=== PATIENT | male | born 1960 | race Two or more races ===

== ENCOUNTER 2017-02-10 19:54 | Inpatient (IN) | payer OTHER ==
[~2017-02-10] VITALS: Ht 160 cm; Wt 72.6 kg
[2017-02-10] MEDS ORDERED: KEPPRA500 M4 ORAL (19:55)
--- NOTE | 2017-02-10 20:57 | Emergency Room Report ---
History of Present Illness General Chief Complaint: Syncope Source: Patient, Family Member Present Illness HPI 56 YOM BIBEMS for suspected syncopal episode. Patient was at friend's house, head nodded and he was not responsive for 20-30sec. No trauma, falls. Patient a little confused, c/o headache after. Denies tongue biting, incontinence. Took Keppra 1500mg last 2 nights ago. Has enough at home. Denies ETOH, drug use. Denies chest pain, SOB, abd pain, palpitations, other complaints. Allergies: Coded Allergies: No Known Allergies (Unverified , 02/10/17) Patient History Past Medical History: seizures Past Surgical History: none Pertinent Family History: none Social History: Denies: alcohol use, drug use, smoking Immunizations: UTD Reviewed Nursing Documentation: PMH: Agreed, PSxH: Agreed Nursing Documentation-PMH Hx Seizures: Yes Review of Systems All Other Systems: negative except mentioned in HPI Physical Exam Vital Signs Date Time Temp Pulse Resp B/P Pulse Ox O2 Delivery O2 Flow Rate FiO2 02/10/17 19:50 98.1 88 18 146/92 98 Room Air Sp02 EP Interpretation: reviewed, normal General Appearance: normal inspection, well appearing, no apparent distress, alert, GCS 15, non-toxic Head: normocephalic, atraumatic Eyes: bilateral eye EOMI, bilateral eye PERRL ENT: normal ENT inspection, hearing grossly normal, normal voice Neck: normal inspection, full range of motion, supple, no bony tend Respiratory: normal inspection, lungs clear, normal breath sounds, no respiratory distress, no retraction, no wheezing Cardiovascular #1: regular rate, rhythm, no edema Gastrointestinal: normal inspection, normal bowel sounds, non tender, soft, no guarding, no hernia Genitourinary: no CVA tenderness Musculoskeletal: normal inspection, back normal, normal range of motion, Charlene' s Sign negative Neurologic: normal inspection, alert, oriented x3, responsive, salesforce administrator III-XII nml as tested, motor strength/tone normal, speech normal Psychiatric: normal inspection, judgement/insight normal, mood/affect normal Skin: normal inspection, normal color, no rash Lymphatic: normal inspection Medical Decision Making Diagnostic Impression: Primary Impression: Seizure ER Course 56 YO M with likely seizure vs syncope less likely given brief post-ictal period , headache, non-compliance with Keppra. Additinal grand mal seizure in ED Given his regular QHS dose of Keppra here in ED said he has TWO seizures today prior to ED arrival and also takes Carbamazepine for seizures. Labs: Leuks 15k. Tylenol, ASA, ETOH level 0 CT head negative for ICH, mass, mass effect on ED review Carb level pending No additional seizures after 2mg IV ativan Endorsed to Dr Mcintosh at 954pm for tele admission as [facility] preferred Hospitalist. Rhythm Strip Diag. Results EP Interpretation: yes Rate: 93 Rhythm: NSR, no PVC's, no ectopy Last Vital Signs Date Time Temp Pulse Resp B/P Pulse Ox O2 Delivery O2 Flow Rate FiO2 02/10/17 19:50 98.1 88 18 146/92 98 Room Air Status: improved Disposition: ADMITTED INPATIENT Condition: Serious Patient Instructions: Seizure, Adult, [id number] Additional Instructions: - Start taking your Keppra as prescribed tomorrow night - Tuesday. - You were given your nightly dose today - Follow up with your doctor regarding seizures in 2-3 days BECCA BLANCO M.D. Feb 10, 2017 20:57
[2017-02-10] MEDS ORDERED: LORazepam Inj 2mg/ml 1ml ONE (20:59)
[2017-02-10] MEDS ORDERED: LORazepam Inj 2mg/ml 1ml IV ONE (21:00)
[2017-02-10 21:05] VITALS: BP 149/89
[2017-02-10 21:34] LABS: ACETAMINOPHEN < 10 ug/mL (10-30); ALANINE AMINOTRANSFERASE 12 U/L (3-41); ALBUMIN/GLOBULIN RATIO 1.5 (1.0-2.7); ALCOHOL < 10 mg/dL; ANION GAP 25 (5-15); ASPARTATE AMINO TRANSFERASE 18 U/L (5-40); CALCIUM 10.3 mg/dL (8.6-10.2); CARBON DIOXIDE 21 mEQ/L (20-30); CHLORIDE 98 mEQ/L (98-107); GLOMERULAR FILTRATION RATE > 60 mL/min (>60); HEMOLYSIS 3; POTASSIUM 4.1 mEQ/L (3.4-4.9); SODIUM 144 mEQ/L (135-145); TOTAL PROTEIN 8.1 g/dL (6.6-8.7)
[2017-02-10 21:40] LABS: BASOPHILS % (AUTO) 0.8 % (0.0-2.0); EOSINOPHILS % (AUTO) 0.1 % (0.0-3.0); LYMPHOCYTES % (AUTO) 19.4 % (20.0-45.0); MEAN CORPUSCULAR HEMOGLOBIN 31.4 PG (27.0-31.0); MEAN CORPUSCULAR HGB CONC 32.4 G/DL (32.0-36.0); MEAN CORPUSCULAR VOLUME 97 FL (80-99); MEAN PLATELET VOLUME 5.8 FL (6.5-10.1); MONOCYTES % (AUTO) 8.8 % (1.0-10.0); PLATELET COUNT 237 K/UL (150-450); RED BLOOD COUNT 4.89 M/UL (4.70-6.10); RED CELL DISTRIBUTION WIDTH 11.9 % (11.6-14.8)
[2017-02-10 23:09] VITALS: BP 138/84
[2017-02-11] MEDS ORDERED: Zolpidem 5mg tab ORAL PRN
[2017-02-11] MEDS ORDERED: Miralax 17gm pkt ORAL PRN
[2017-02-11] MEDS ORDERED: Morphine Sulfate 2mg/ml Inj IVP PRN
[2017-02-11] MEDS ORDERED: LORazepam Inj 2mg/ml 1ml IV PRN
[2017-02-11] MEDS ORDERED: Mylanta II UD 30ml ORAL PRN
[2017-02-11 00:27] VITALS: BP 108/61
[2017-02-11 02:25] VITALS: BP 110/63
[2017-02-11 04:30] VITALS: BP 105/66
[2017-02-11 06:52] VITALS: BP 108/70
--- NOTE | 2017-02-11 08:59 | Diagnostic Imaging Report ---
Indication: Seizure and syncope Technique: Continuous helical CT scanning of the head was performed without intravenous contrast material. Axial and coronal 5 mm sections were generated. Radiation dose was minimized using automated exposure control Dose: Total Dose Length Product - DLP [address] Dose Index - CTDIvol(s) 70.38 mGy. Comparison: None Findings: The ventricular system is normal in size and configuration. There is no shift of midline structures. No abnormal extra-axial fluid collections are noted. There is no evidence of intracerebral bleeding. No other abnormal high or low density areas are noted within the brain. Intact calvarium. Visualized orbits and sinuses are unremarkable Impression: Normal CT scan of the head without contrast material. This agrees with the preliminary interpretation provided overnight by Dr. Gutiérrez The CT scanner at [facility] is accredited by the [employer] and the scans are performed using protocols designed to limit radiation exposure to as low as reasonably achievable to attain images of sufficient resolution adequate for diagnostic evaluation.
[2017-02-11] MEDS ORDERED: Heparin 5000 units/ml inj SUBQ SCH (09:00)
--- NOTE | 2017-02-11 11:30 | Diagnostic Imaging Report ---
Indication: Shortness of breath Technique: One view of the chest Comparison: None Findings: Lungs and pleural spaces are clear. Heart size is normal Impression: Negative This agrees with the preliminary interpretation provided by the emergency room physician
[2017-02-11 12:00] VITALS: BP 105/61
--- NOTE | 2017-02-11 12:06 | History and Physical ---
History of Present Illness General Date patient seen: Feb 11, 2017 Reason for Hospitalization: Syncope Present Illness HPI 56 year old male with hx of seizure brought in by paramedics with CC of ALOC . Patient was at friend's house when he became unresponsive for 20-30sec. No trauma, falls. Patient a little confused, c/o headache after. Denies tongue biting, incontinence. Pt is admitted for uncontrolled seizures. Allergies: Coded Allergies: No Known Allergies (Unverified , 02/10/17) Medication History Scheduled Levetiracetam (Keppra), 3 TAB ORAL BEDTIME, (Reported) Patient History Healthcare decision maker pt alert and oriented Resuscitation status Full Code Advanced Directive on File No Past Medical/Surgical History Past Medical/Surgical History: (1) Seizure Review of Systems All Other Systems: negative except mentioned in HPI Physical Exam General Appearance: WD/WN Lines, tubes and drains: peripheral HEENT: normocephalic Neck: non-tender Respiratory/Chest: chest wall non-tender, lungs clear Cardiovascular/Chest: normal peripheral pulses Abdomen: normal bowel sounds Genitourinary/Rectal: normal genital exam, normal prostate exam Skin Exam: normal pigmentation Last 24 Hour Vital Signs Date Time Temp Pulse Resp B/P Pulse Ox O2 Delivery O2 Flow Rate FiO2 02/11/17 08:15 74 02/11/17 07:26 98.4 70 11 108/70 96 Room Air 02/11/17 06:52 98.4 70 11 108/70 96 Room Air 02/11/17 04:30 74 17 105/66 100 Room Air 02/11/17 02:25 98.2 70 18 110/63 100 Room Air 02/11/17 00:27 98.1 69 21 108/61 98 Room Air 02/10/17 23:09 97.9 78 19 138/84 98 Room Air 02/10/17 21:40 98.1 02/10/17 21:05 98.1 104 18 149/89 98 Room Air 02/10/17 19:50 98.1 88 18 146/92 98 Room Air Intake and Output 02/10/17 02/11/17 19:00 07:00 Output Total 600 ml Balance -600 ml Output Urine Total 600 ml # Voids 1 Laboratory Tests Test 02/10/17 21:00 02/10/17 22:00 White Blood Count 14.0 K/UL (4.8-10.8) H Red Blood Count 4.89 M/UL (4.70-6.10) Hemoglobin 15.4 G/DL (14.2-18.0) Hematocrit 47.4 % (42.0-52.0) Mean Corpuscular Volume 97 FL (80-99) Mean Corpuscular Hemoglobin 31.4 PG (27.0-31.0) H Mean Corpuscular Hemoglobin Concent 32.4 G/DL (32.0-36.0) Red Cell Distribution Width 11.9 % (11.6-14.8) Platelet Count 237 K/UL (150-450) Mean Platelet Volume 5.8 FL (6.5-10.1) L Neutrophils (%) (Auto) 71.0 % (45.0-75.0) Lymphocytes (%) (Auto) 19.4 % (20.0-45.0) L Monocytes (%) (Auto) 8.8 % (1.0-10.0) Eosinophils (%) (Auto) 0.1 % (0.0-3.0) Basophils (%) (Auto) 0.8 % (0.0-2.0) Sodium Level 144 mEQ/L (135-145) Potassium Level 4.1 mEQ/L (3.4-4.9) Chloride Level 98 mEQ/L (98-107) Carbon Dioxide Level 21 mEQ/L (20-30) Anion Gap 25 (5-15) H Blood Urea Nitrogen 17 mg/dL (7-23) Creatinine 1.0 mg/dL (0.7-1.2) Estimat Glomerular Filtration Rate > 60 mL/min (>60) Glucose Level 121 mg/dL (74-106) H Calcium Level 10.3 mg/dL (8.6-10.2) H Total Bilirubin 0.4 mg/dL (0.0-1.2) Aspartate Amino Transf (AST/SGOT) 18 U/L (5-40) Alanine Aminotransferase (ALT/SGPT) 12 U/L (3-41) Alkaline Phosphatase 101 U/L (40-129) Total Protein 8.1 g/dL (6.6-8.7) Albumin 4.9 g/dL (3.5-5.2) Globulin 3.2 g/dL Albumin/Globulin Ratio 1.5 (1.0-2.7) Salicylates Level < 1 mg/dL (10-30) L Acetaminophen Level < 10 ug/mL (10-30) L Carbamazepine (Tegretol) Level < 2.0 ug/mL (4.0-12.0) L Serum Alcohol < 10 mg/dL Urine Opiates Screen Negative (NEGATIVE) Urine Barbiturates Screen Negative (NEGATIVE) Phencyclidine (PCP) Screen Negative (NEGATIVE) Urine Amphetamines Screen Negative (NEGATIVE) Urine Benzodiazepines Screen Negative (NEGATIVE) Urine Cocaine Screen Negative (NEGATIVE) Urine Marijuana (THC) Screen Negative (NEGATIVE) Height (Feet): 5 Height (Inches): 3.00 Weight (Pounds): 160 Medications Current Medications Medications (Trade) Dose Ordered Sig/Davidson Route PRN Reason Start Time Stop Time Status Last Admin Dose Admin Acetaminophen (Tylenol) 650 mg Q4H PRN ORAL fever 02/11/17 00:00 03/13/17 00:00 Al Hydroxide/Mg Hydroxide (Mylanta II) 30 ml Q6H PRN ORAL dyspepsia 02/11/17 00:00 03/13/17 00:00 Dextrose (Dextrose 50%) STAT PRN IV Hypoglycemia 02/11/17 00:00 03/13/17 00:00 Heparin Sodium (Porcine) (Heparin 5000 units/ml) 5,000 units EVERY 12 HOURS SUBQ 02/11/17 09:00 03/13/17 08:59 02/11/17 08:40 Levetiracetam (Keppra) 1,500 mg STAT ORAL 02/10/17 20:30 03/12/17 20:29 02/10/17 20:41 Lorazepam (Ativan 2mg/ml 1ml) 2 mg Q1H PRN IV seizures 02/11/17 00:00 02/18/17 00:00 Morphine Sulfate (Morphine Sulfate) 1 mg Q4H PRN IVP For Pain 02/11/17 00:00 02/18/17 00:00 Ondansetron HCl (Zofran) 4 mg Q6H PRN IVP Nausea & Vomiting 02/11/17 00:00 03/13/17 00:00 Polyethylene Glycol (Miralax) 17 gm HSPRN PRN ORAL Constipation 02/11/17 00:00 03/13/17 00:00 Zolpidem Tartrate (Ambien) 5 mg HSPRN PRN ORAL Insomnia 02/11/17 00:00 03/13/17 00:00 Assessment/Plan Problem List: (1) Uncontrolled seizures ICD Codes: R56.9 - Unspecified convulsions SNOMED: [id number] Assessment/Plan seizure precaution neuro evaluation ERA KELLY Feb 11, 2017 12:06
--- NOTE | 2017-02-11 12:48 | Neurology Progress Note ---
Objective Physical Exam Last Vital Signs Date Time Temp Pulse Resp B/P Pulse Ox O2 Delivery O2 Flow Rate FiO2 02/11/17 08:15 74 02/11/17 07:26 98.4 11 108/70 96 Room Air Laboratory Tests Test 02/10/17 21:00 02/10/17 22:00 White Blood Count 14.0 K/UL (4.8-10.8) H Red Blood Count 4.89 M/UL (4.70-6.10) Hemoglobin 15.4 G/DL (14.2-18.0) Hematocrit 47.4 % (42.0-52.0) Mean Corpuscular Volume 97 FL (80-99) Mean Corpuscular Hemoglobin 31.4 PG (27.0-31.0) H Mean Corpuscular Hemoglobin Concent 32.4 G/DL (32.0-36.0) Red Cell Distribution Width 11.9 % (11.6-14.8) Platelet Count 237 K/UL (150-450) Mean Platelet Volume 5.8 FL (6.5-10.1) L Neutrophils (%) (Auto) 71.0 % (45.0-75.0) Lymphocytes (%) (Auto) 19.4 % (20.0-45.0) L Monocytes (%) (Auto) 8.8 % (1.0-10.0) Eosinophils (%) (Auto) 0.1 % (0.0-3.0) Basophils (%) (Auto) 0.8 % (0.0-2.0) Sodium Level 144 mEQ/L (135-145) Potassium Level 4.1 mEQ/L (3.4-4.9) Chloride Level 98 mEQ/L (98-107) Carbon Dioxide Level 21 mEQ/L (20-30) Anion Gap 25 (5-15) H Blood Urea Nitrogen 17 mg/dL (7-23) Creatinine 1.0 mg/dL (0.7-1.2) Estimat Glomerular Filtration Rate > 60 mL/min (>60) Glucose Level 121 mg/dL (74-106) H Calcium Level 10.3 mg/dL (8.6-10.2) H Total Bilirubin 0.4 mg/dL (0.0-1.2) Aspartate Amino Transf (AST/SGOT) 18 U/L (5-40) Alanine Aminotransferase (ALT/SGPT) 12 U/L (3-41) Alkaline Phosphatase 101 U/L (40-129) Total Protein 8.1 g/dL (6.6-8.7) Albumin 4.9 g/dL (3.5-5.2) Globulin 3.2 g/dL Albumin/Globulin Ratio 1.5 (1.0-2.7) Salicylates Level < 1 mg/dL (10-30) L Acetaminophen Level < 10 ug/mL (10-30) L Carbamazepine (Tegretol) Level < 2.0 ug/mL (4.0-12.0) L Serum Alcohol < 10 mg/dL Urine Opiates Screen Negative (NEGATIVE) Urine Barbiturates Screen Negative (NEGATIVE) Phencyclidine (PCP) Screen Negative (NEGATIVE) Urine Amphetamines Screen Negative (NEGATIVE) Urine Benzodiazepines Screen Negative (NEGATIVE) Urine Cocaine Screen Negative (NEGATIVE) Urine Marijuana (THC) Screen Negative (NEGATIVE) Impression/Recommendations Problems: (1) chronic partial complex seizure disorder, exacerbation 2/2 noncompliance Status: stable Recommendations #[id number] NABIL PEARCE Feb 11, 2017 12:48
[2017-02-11] MEDS ORDERED: carBAMazepine XR 200mg tab ORAL SCH (14:30)
--- NOTE | 2017-02-11 23:58 | Consultation ---
DATE OF CONSULTATION: 02/11/2017 NEUROLOGICAL CONSULTATION CONSULTING PHYSICIAN: Shay Dong M.D. REQUESTING PHYSICIAN: Stacey Mcintosh M.D. HISTORY OF PRESENT ILLNESS: This is a 56 years old gentleman seen in neurological consultation to evaluate the exacerbation of seizures. The patient reportedly was at a friend's house, where he had a very brief 20 to 30 seconds episode of unresponsiveness with head nodded down, following which he was somewhat confused and developed some headaches. He was brought to the emergency room. Blood pressure was 146/92 and temperature 98.1. He is fully alert and oriented. While in the emergency department, he developed generalized clonic-tonic seizure, which his came and reported that actually prior to coming to emergency room he had at least two generalized seizures. Following arrival, vital signs remained stable. His laboratory studies revealed CBC study with WBC of 14.0. Chemistry panel - blood sugar 121, calcium 10.3, and anion gap of 25. Toxicology panel, carbamazepine level was less than 2.0. He had a CT scan of the brain done, this was normal with no evidence of stroke. He had a chest x-ray that was negative. The patient now explains that he has a chronic seizure disorder since the early 30s. Seizures initially were generalized with a fall and tongue biting, but several years now they become nonconvulsive with sudden onset of loss of consciousness without fall, blank stare, lasting few seconds. This occurs only once in couple of months. The patient is maintained on Keppra 1500 mg at nighttime. He is on Tegretol although he is unable to recall appropriately his dose. PAST MEDICAL HISTORY: Limited only to seizure disorder. No other major medical problems. CURRENT TREATMENT: Limited to Keppra and Tegretol. SOCIAL HISTORY: . No alcohol. No drug abuse. Nonsmoker. The patient is working in a body shop with painting the bodies. REVIEW OF SYSTEMS: At this time, the patient feels well. He has no complaints. No chest pain. No palpitations. No respiratory problems. Denies abdominal pain or discomfort. No urine or bowel incontinence. PHYSICAL EXAMINATION: VITAL SIGNS: Stable. Blood pressure 108/70, respiratory rate 11, and temperature 98.4 degrees. HEENT: Head is normocephalic. No evidence of injuries. Eyes, ears, and throat are clear. NECK: Supple. No meningeal signs. MUSCULOSKELETAL: Unremarkable. There is no deformities. Peripheral pulses 1+ symmetric. MENTAL STATUS: Alert and oriented x3. No evidence of aphasia or apraxia. Cognition is normal. CRANIAL NERVE II: Pupils both responding to light and accommodation. Extraocular movements are intact. No nystagmus. CRANIAL NERVE V: Normal corneal responses. CRANIAL NERVE VII: No facial asymmetry. CRANIAL NERVE VIII: Grossly normal hearing. CRANIAL NERVE IX THROUGH XII: Tongue is in midline. Symmetric palate elevation. MOTOR EXAMINATION: Normal muscle tone and strength is 5/5 in all extremities. No involuntary movement. Deep reflexes 1+ symmetric with downgoing toes on both sides. SENSORY EXAMINATION: Normal to pinprick and light touch. Gait is stable. IMPRESSION: Chronic partial complex seizure disorder with secondary generalization, now presenting with exacerbation due to noncompliance. DISCUSSION: The patient admits not taking medication over the last two or three days. He arrived with a Tegretol level subtherapeutic. The patient will restart on his usual dose of Keppra 1500 mg daily. The patient informed that he was not taking his medication over the last couple of days, this respond to low level of Tegretol on admission. We will restart treatment with Keppra 1000 mg b.i.d. and Tegretol 200 mg b.i.d. Observe for paroxysmal events. The patient was informed that his seizures exacerbated by not taking medication, by being hungry or having insufficient sleep. All trigger factors were discussed. Thank you for allowing me to see this interesting patient in neurological consultation. Shay Dong M.D. DR: ZENOBIA JOB#: [id number] CC:
--- NOTE | 2017-02-12 18:51 | Cardiology Report ---
APPROVED REPORT EKG Measurement Heart [id number] Sinus tachycardia Otherwise normal ECG
--- NOTE | 2017-02-14 12:48 | Discharge Summary ---
Discharge Summary Hospital Course Date of Admission Feb 10, 2017 at 21:33 Date of Discharge Feb 11, 2017 at 15:07 Admitting Diagnosis seizures DESTINEY Maloney is a 56 year old male who was admitted on Feb 10, 2017 at 21: 33 for Seizures Hospital Course dc summary #[id number] Discharge Medications New Medications: Carbamazepine (Tegretol*) 200 Mg Tablet 200 MG PO Q12HR, #60 TAB 0 Refills Continued Medications: Levetiracetam (Levetiracetam) 1,000 Mg Tablet 1000 MG ORAL TWICE A DAY, #60 TAB 0 Refills Discharge Condition Upon Discharge: stable Discharge Disposition Patient was discharged to Home (01) Discharge Diagnoses: Discharge Instructions Discharge Instructions Special Instructions I have been assigned to complete a D/C Summary on this account. I was not involved in the patient management Deana Meadows NP (Vanchtein) Feb 14, 2017 12:48
--- NOTE | 2017-02-15 02:39 | Discharge Summary 2 SIG ---
DATE OF ADMISSION: 02/10/2017 DATE OF DISCHARGE: 02/11/2017 REASON FOR ADMISSION: 56-year-old male, presented to emergency room after seizure x2 per his . The patient was in the house and was not responsive for 20 to 30 seconds. No falls. No injury. No trauma. The patient was slightly confused upon presentation and reported headache. He denied tongue biting. Denied incontinence. The patient usually at home on Keppra and Tegretol. He did not take Tegretol for few days and took Keppra 00260 mg two nights ago. He denied alcohol and illicit street drugs use. He denied chest pain, shortness of breath, abdominal pain, or palpitations. CT of the head was negative for any acute intracranial pathology. The patient had another episode of seizures while in the hospital. In the emergency department, Keppra was given. Ativan was given. No additional seizures after 2 mg of IV Ativan . EKG revealed normal sinus rhythm. No premature ventricular contraction. No ectopy. No ischemic changes. The patient was admitted for further management. ADMITTING DIAGNOSES: 1. Chronic seizure disorder with exacerbation. 2. Noncompliance. HOSPITAL STAY: The patient was admitted. Neurology consult was requested. Per Neurology, the patient was started on Keppra at 1000 mg twice a day as well as the Tegretol 200 mg twice a day as well as the Ativan as needed . No further evidence of seizures. Neurologist discussed all risk factors triggering seizure including noncompliance, being hungry, not getting enough sleep, very loud music, scintillating lights. Alcohol level was negative. Urine toxicology screen was negative. Low Tegretol level and Keppra level borderline. Neurologist cleared the patient for discharge. Due to the rapid and unexpected improvement in the patient's condition, the patient was discharged in one day. DISCHARGE DIAGNOSES: 1. Chronic partial complex seizure disorder with exacerbation secondary to noncompliance. 2. Noncompliance. DISCHARGE MEDICATIONS: See medication reconciliation list. Prescription provided for Keppra and Tegretol as outlined in medication reconciliation list. DISCHARGE INSTRUCTIONS: The patient to follow up with the primary medical doctor next week. Advised to the nearest emergency room if the patient develop seizure activities. Stacey Mcintosh M.D. I have been assigned to dictate discharge summary on this account and I was not involved in the patient's management. Deana Meadows (Vanchtein) NSusanna DR: MENDEZ JOB#: [id number] CC: [id number]
== END 2017-02-11 15:07 | disposition home or self-care (01) | DRG 53 ==
LOC: EDBD 19:54 → EMR 21:26 → 2W 21:33 → EDBEDREQ 02-11 06:07
DX: G40.209 Localization-related (focal) (partial) symptomatic epilepsy and epileptic syndromes with complex partial seizures, not intractable, without status epilepticus (principal); Z91.14 Patient's other noncompliance with medication regimen
CPT/HCPCS: 36415; 70450; 71010; 80053; 80156; 80299; 80300; 80329; 85025; 93005